=== PATIENT | male | born 1950 | race Caucasian/White ===

== ENCOUNTER 2018-02-03 11:34 | Emergency (ER) | payer OTHER ==
[2018-02-03 11:51] VITALS: BP 149/89
--- NOTE | 2018-02-03 13:02 | UC ---
Complaint Male HPI - HPI Summary HPI Summary: Pt with onset of primo blood in the urine this morning. Has had several episodes of bright red urine. Painless. Pt denies fever, nausea, weight loss, bruising or bleeding from other sites. He has a h/o hemophilia and receives Benefix monthy. Denies any trauma or urinary instrumentation. - History of Current Complaint Chief Complaint: UCGU Stated Complaint: BLOOD IN URINE Time Seen by Provider: 02/03/18 12:45 Hx Obtained From: Patient Onset/Duration: Sudden Onset, Still Present Severity Initially: Moderate Severity Currently: Moderate Pain Intensity: 0 Pain Scale Used: 0-10 Numeric Aggravating Factor(s): Voiding Alleviating Factor(s): Nothing Associated Signs And Symptoms: Positive: Hematuria. Negative: Back Pain, Fever , Dysuria, Blood in Stool, Nausea, Penile Swelling, Penile Discharge - Allergies/Home Medications Allergies/Adverse Reactions: Allergies Allergy/AdvReac Type Severity Reaction Status Date / Time aspirin Allergy See Comment Verified 02/03/18 11:41 Home Medications: Home Medications Ledipasvir/Sofosbuvir 90/(NF) [Harvoni 90/400 (NF)] 1 tab PO DAILY 02/03/18 [ History Confirmed 02/03/18] PMH/Surg Hx/FS Hx/Imm Hx - Additional Past Medical History Additional PMH: HEMOPHILIA Other GI/ History: BPH, HEP C - Surgical History Surgical History: Yes Surgery Procedure, Year, and Place: Right TKA, Left TKA. Bilateral ankles fusion. R trigger finger repair 2013 - Family History Family History: NO FAMILY H/O CANCER - Social History Alcohol Use: Weekly Alcohol Amount: 2-3 drinks/ night on weekends Substance Use Type: None Smoking Status (MU): Never Smoked Tobacco Have You Smoked in the Last Year: No Review of Systems Constitutional: Negative Respiratory: Negative Cardiovascular: Negative Gastrointestinal: Negative Genitourinary: Hematuria All Other Systems Reviewed And Are Negative: Yes Physical Exam Triage Information Reviewed: Yes Appearance: Well-Appearing, No Pain Distress, Well-Nourished Vital Signs: Initial Vital Signs Temp 98.1 F 02/03/18 11:43 Pulse 67 02/03/18 11:43 Resp 18 02/03/18 11:43 BP 149/89 02/03/18 11:43 Pulse Ox 100 02/03/18 11:43 Vital Signs Reviewed: Yes Eyes: Positive: Conjunctiva Clear ENT: Positive: Hearing grossly normal Neck: Positive: Supple Respiratory Exam: Normal Cardiovascular Exam: Normal Abdomen Description: Positive: Nontender, Soft. Negative: CVA Tenderness (R), CVA Tenderness (L), Distended, Guarding Musculoskeletal: Positive: No Edema Neurological: Positive: Alert Psychological: Positive: Age Appropriate Behavior Skin: Negative: rashes Diagnostics - Laboratory Diagnostic Studies Completed/Ordered: URINE DIP SP. GR. 1.010, 1+ PROTEIN, 3+ BLOOD Complaint Male Course/Dx - Course Course Of Treatment: Patient presents with painless hematuria starting this morning. He does have a history of hemophilia but receives BeneFix regularly and has no other indication that his bleeding disorder is uncontrolled. He sees Dr. Prasad for his BPH. Spoke with Dr. Prasad and he advised office evaluation immediately. Patient will go directly to Dr. Prasad's office from here. Pt given water to drink to fill bladder en route. Patient declined exam given that he is heading straight to urology office now. - Differential Dx/Diagnosis Provider Diagnoses: GROSS HEMATURIA - Physician Notifications Discussed Patient Care With: Ramírez Prasad Time Discussed With Above Provider: 13:15 Instructed by Provider To: Send To Office Now Discharge - Sign-Out/Discharge Documenting (check all that apply): Discharge - Discharge Plan Condition: Stable Disposition: HOME Patient Education Materials: Hematuria (ED) Referrals: Fatoumata Salcedo MD [Primary Care Provider] - If Needed Ramírez Prasad MD [Medical Doctor] - (GO DIRECTLY TO DR. PRASAD'S OFFICE FROM HERE FOR FURTHER EVALUATION) - Billing Disposition and Condition Condition: STABLE Disposition: HOME
== END 2018-02-03 13:20 | disposition home or self-care (01) ==
LOC: UCEAST 11:34
DX: R31.0 Gross hematuria (principal); D66 Hereditary factor VIII deficiency; Z88.6 Allergy status to analgesic agent
CPT/HCPCS: 81003; 99211; G0463